=== PATIENT | male | born 1970 | race Caucasian/White ===

== ENCOUNTER 2017-08-04 14:00 | Emergency (ER) | payer OTHER ==
[~2017-08-04] VITALS: Ht 177.8 cm; Wt 109.1 kg
[2017-08-04] MEDS ORDERED: NYST50SS SSP (16:24)
[2017-08-04 16:34] VITALS: BP 164/89
== END 2017-08-04 16:36 | disposition home or self-care (01) ==
LOC: M ED 14:00
DX: B37.0 Candidal stomatitis (principal)